=== PATIENT | male | born 1980 | race Caucasian/White ===

== ENCOUNTER 2023-09-15 06:31 | Day surgery (SDC) | payer OTHER, SELFPAY ==
[2023-09-15] VITALS (10 sets, daily range): BP systolic 110–131; BP diastolic 76–90; BMI 34.4
[2023-09-15] MEDS: TYLENOL 1000 MG PO (08:47)
[2023-09-15] MEDS: NORMOSOL-R 1000 IV (08:47)
--- NOTE | 2023-09-15 09:29 | W.SUR.PREOP ---
Pre-Operative Surgical Note
-
I have examined this patient prior to the performance of the scheduled procedure.
The patient's condition is unchanged from the time of the current History and
Physical and the patient is able to undergo the scheduled procedure.
--- NOTE | 2023-09-15 12:05 | W.IMMPOSTOP ---
Surgical Immed Post Op Note
-
Primary Surgeon: Christian Gaines MD
Assisting Surgeon: None
Pre-op Diagnosis: Umbilical hernia
Post-op Diagnosis: Same
Procedure Performed: Robotic umbilical hernia repair with mesh (THEE approach)
Anesthesia Type: General
Specimen / Cultures: None
Estimated Blood Loss: 3 cc
Complications: None
Operative Findings: 2.5 cm umbilical defect containing preperitoneal fat. Defect closed with 0 V lock 180 floor reinforced with a 13 x 13 Bard soft mesh.
POST OP PLAN:
Will discharge home later today.
--- NOTE | 2023-09-15 12:07 | OR.RPT ---
Operative Report
Operative Report
Patient Name: Fabio Ng
: 1980
Date of Operation: 09/15/2023
Preoperative Diagnosis: Umbilical hernia
Postoperative Diagnosis: Same
Procedure(s):
Robotic umbilical hernia repair with mesh (THEE approach)
Surgeon(s):
Dr. Gaines
Assitant(s):
HERMELINDA Gifford
Anesthesia: General
Estimated Blood Loss: 3 cc
Urine Output: None
Drains/Lines/Implants:
13 x 13 cm round Bard soft mesh
Specimens:
None
HPI/Surgical Indications:
This is a 43-year-old male who was seen in my office for a symptomatic umbilical bulge and diagnosed with a reducible umbilical hernia. Risks/Benefits/Alternatives were discussed at length, and the patient agreed to proceed with surgery.
Findings:
2.5 cm umbilical hernia containing preperitoneal fat
Procedure Description:
The patient was brought to the Operating Room and placed in the supine position with the arms tucked. IV antibiotics were infused and Venodyne stockings placed. Following uneventful induction of general endotracheal anesthesia, an orogastric tube
were placed. The abdomen was prepped and draped in the usual sterile fashion. The abdomen was entered using a Veress technique which required 1 pass, pneumoperitoneum to 15 mmHg was obtained without difficulty. An 8mm trochar was passed through
the abdominal wall roughly 20 cm laterally from the defect in the left upper quadrant, we then confirmed the no inadvertent injury and made while passing the trocar or Veress needle. We then placed two additional 8 mm ports in the left lower
quadrant. Bilateral tap blocks were performed. The robot was docked. We then introduced our prograsper through the inferior/left hand port and a monopolar scissors through the superior port. We then turned our attention to the hernia which had
no intra-abdominal contents. We then began taking a flap down roughly 6 cm away from the defect and roughly 14 cm in length taking care to stay in the pretransversalis plane. The preperitoneal fat was taken down off of the posterior rectus sheath
both superior and inferior to the hernia defect such that we were able to get our 'volcano sign'. We then worked on reducing the defect which contained preperitoneal fat and continued our dissection out laterally for an additional 6 to 7 cm. Once
our flap was created we introduced a ruler and a 0 V-Loc 180. The main hernia defect measured 2.5 cm. The pocket measured 15 x 14 cm. I had my golf course assistant cut a 13 x 13 cm piece of Bard soft mesh with medical nurse, as I closed the umbilical
defect. The mesh was then sutured to the posterior rectus sheath in 4 quadrants with 2-0 vircyls to ensure good apposition. A 2-0 Monocryl was introduced which was used to close our flap. All sutures were removed. The robot was undocked. The
ports were removed under direct visualization and pneumoperitoneum was evacuated. The port sites were closed with 4-0 Monocryl followed by Dermabond. A Tegaderm/gauze umbilical suction dressing was placed. Counts were correct and overall, the
patient tolerated the procedure well and was taken to the Recovery Room postoperatively in stable condition.
I was the attending physician and performed the procedure with assistance from the TRAFFIC SUPERINTENDENT above. I was present for all portions of the case except for skin closure.
Christian Gaines MD
== END 2023-09-15 14:30 | disposition home or self-care (01) ==
LOC: SDS 06:31
PROVIDERS: ATTENDING PHYSICIAN Surgery
DX: K42.9 Umbilical hernia without obstruction or gangrene (principal)
CPT/HCPCS: 49591; C1781

== ENCOUNTER 2024-03-13 06:31 | Day surgery (SDC) | payer OTHER, SELFPAY ==
[2024-03-13] VITALS (7 sets, daily range): BP systolic 119–130; BP diastolic 75–86; BMI 35.1
== END 2024-03-13 11:35 | disposition home or self-care (01) ==
LOC: GI 06:31
PROVIDERS: ATTENDING PHYSICIAN Internal Medicine Gastroenterology
DX: D12.2 Benign neoplasm of ascending colon (principal); D12.3 Benign neoplasm of transverse colon; K64.0 First degree hemorrhoids; Z86.010 Personal history of colon polyps; Z98.890 Other specified postprocedural states
CPT/HCPCS: 45385; 45380; 88305

== ENCOUNTER 2025-03-14 06:18 | Day surgery (SDC) | payer OTHER, SELFPAY | END 2025-03-14 16:18 | disposition home or self-care (01) | LOC: GI 06:18 | PROVIDERS: ATTENDING PHYSICIAN Internal Medicine Gastroenterology | DX: Z12.11 Encounter for screening for malignant neoplasm of colon (principal); K64.9 Unspecified hemorrhoids; D12.3 Benign neoplasm of transverse colon; Z86.0100 Personal history of colon polyps, unspecified; Z98.890 Other specified postprocedural states | CPT/HCPCS: 45380; 88305 ==